=== PATIENT | male | born 1965 | race Asian ===

== ENCOUNTER 2017-02-20 08:14 | Emergency (ER) | payer MEDICAID ==
[~2017-02-20] VITALS: Ht 165.1 cm; Wt 73.0 kg
[2017-02-20] MEDS ORDERED: ACETAMINOPHEN WITH CODEINE 300/30MG TABLET PO ONE (09:30)
[2017-02-20 10:14] VITALS: BP 133/67
== END 2017-02-20 11:21 | disposition home or self-care (01) ==
LOC: ER 09:50
DX: R07.89 Other chest pain (principal); R10.32 Left lower quadrant pain; R51 Headache
CPT/HCPCS: 71010; 74176; 99284